=== PATIENT | female | born 1955 | race Caucasian/White ===

== ENCOUNTER 2017-04-24 13:27 | Outpatient (CLI) | payer BC ==
--- NOTE | 2017-04-28 12:14 | Mammography Report ---
DIGITAL SCREENING MAMMOGRAPHY: 04/24/2017 COMPARISON: 04/16/2016, 03/29/2015, 03/06/2014, 02/17/2013, and 11/10/2011. TECHNIQUE: Bilateral digital CC and MLO projections are performed. FINDINGS: There are scattered fibroglandular densities. A small posterior nodular density in the ri ght breast is stable. No new dominant mass, architectural distortion, skin thickening, suspicious mi crocalcifications, or interval change. IMPRESSION: NEGATIVE. BIRADS CATEGORY 1 - NEGATIVE. SUGGEST RETURN TO ROUTINE SCREENING IN ONE YEAR. STANDARD QUALIFYING STATEMENTS 1. This examination was reviewed with the aid of Computer-Aided Detection (CAD). 2. A negative or benign imaging report should not delay biopsy if clinically suspicious findings are present. Consider surgical consultation if warranted. More than 5% of cancers are not identified by i maging. 3. Dense breasts may obscure an underlying neoplasm. JOB #: [id number] EXT JOB #:[id number]
== END 2017-04-24 13:28 | disposition home or self-care (01) ==
LOC: DI.N 13:27
PROVIDERS: ATTEND Internal Medicine
DX: Z12.31 Encounter for screening mammogram for malignant neoplasm of breast (principal)
CPT/HCPCS: 77067

== ENCOUNTER 2018-05-04 13:22 | Outpatient (CLI) | payer MEDICARE, BC ==
--- NOTE | 2018-05-10 15:01 | Mammography Report ---
Reason: SCREENING MAMMO Procedure Date: 05/04/2018 Accession Number: [id number] / [id number] Procedure: MGN - Screening Mammo Dig Bilat CPT Code: FULL RESULT: EXAM: Screening Mammo Dig Bilat DATE: 05/04/2018 1:38 PM CLINICAL HISTORY: 63-year-old female with history of breast cancer in 1 cousin. TECHNIQUE: Bilateral CC and MLO views were obtained. COMPARISON: 04/24/2017, 04/16/2016, 04/06/2015, 02/26/2014. FINDINGS: The breasts demonstrate scattered fibroglandular densities bilaterally. No suspicious masses, clustered microcalcifications, or regions of architectural distortion are identified. IMPRESSION: Negative examination RECOMMENDATION: Routine annual screening unless otherwise clinically indicated. BIRADS CATEGORY 2: Benign findings STANDARD QUALIFYING STATEMENTS: 1. This examination was not reviewed with the aid of Computer-Aided Detection (CAD). 2. A negative or benign imaging report should not delay biopsy if clinically suspicious findings are present. Consider surgical consultation if warrented. More than 5% of cancers are not identified by imaging. 3. Dense breasts may obscure an underlying neoplasm. 4. This examination was reviewed without the aid of 3D breast imaging (tomosynthesis).
== END 2018-05-04 13:23 | disposition home or self-care (01) ==
LOC: DI.N 13:22
DX: Z12.31 Encounter for screening mammogram for malignant neoplasm of breast (principal); Z80.3 Family history of malignant neoplasm of breast
CPT/HCPCS: 77067

== ENCOUNTER 2018-07-16 12:42 | Outpatient (CLI) | payer MEDICARE, BC ==
--- NOTE | 2018-07-19 09:29 | DEXA Report ---
Reason: DISORDER OF BONE Procedure Date: 07/16/2018 Accession Number: [id number] / [id number] Procedure: DEX - Dexa Spine and/or Hip CPT Code: FULL RESULT: EXAM: Dexa Spine and/or Hip DATE: 07/16/2018 1:41 PM CLINICAL HISTORY: DISORDER OF BONE TECHNIQUE: Dual energy x-ray absorptiometry (DXA) was performed on a [employer] System. Regions measured are the AP Spine, femoral neck, and if needed forearm. COMPARISON: None. In accordance with the International Society for Clinical Densitometry (ISCD) guidelines, data from previous exams may be reanalyzed using current recommendations and techniques. This is done to allow a more accurate basis for comparison with the current study. FINDINGS: The data for the lumbar spine is as follows: BMD (g/cm/cm) T-SCORE Z-SCORE REGION L1 1.166 0.3 1.0 L2 1.280 0.7 1.4 L3 and L4 were excluded from analysis due to focal degenerative change with artifactually increased bone density. TOTAL 1.223 0.5 1.2 NOTE: All evaluable vertebrae are used for classification The data for the hip is as follows: BMD (g/cm/cm) T-SCORE Z-SCORE REGION Neck 1.050 0.1 1.0 TOTAL 0.948 -0.5 0.1 NOTE: The femoral neck or total proximal femur, whichever is lowest, is used for classification. IMPRESSION: THE WHO CLASSIFICATION BASED ON THE INTERNATIONAL REFERENCE STANDARD IS NORMAL. THE FRACTURE RISK IS NOT INCREASED. RECOMMENDATION: Patients with diagnosis of osteoporosis or osteopenia should have regular bone mineral density assessment. For those eligible for Medicare, routine testing is allowed once every 2 years. Testing frequency can be increased for patients who have rapidly progressing disease or for those who are receiving medical therapy to restore bone mass. COMMENT: World Health Organization (WHO) definitions for osteoporosis and osteopenia: NORMAL BMD: T-score at -1.0 or higher, fracture risk is low OSTEOPENIA BMD: T-score between -1.0 and -2.5, fracture risk is increased. OSTEOPOROSIS BMD: T-score at -2.5 or lower, fracture risk is high. National Osteoporosis Foundation recommends: 1. Obtain adequate dietary calcium (at least 1200 mg per day) and vitamin D (400-800 international units per day). 2. Participate, as appropriate, in regular weightbearing and muscle-strengthening exercise. 3. Avoid tobacco use and reduce alcohol and caffeine intake. 4. For more detailed information see the website at www.NOF.org.
== END 2018-07-16 12:43 | disposition home or self-care (01) ==
LOC: DI 12:42
PROVIDERS: ATTEND Internal Medicine
DX: M89.9 Disorder of bone, unspecified (principal)
CPT/HCPCS: 77080

== ENCOUNTER 2018-08-16 12:48 | Outpatient (CLI) | payer MEDICARE, BC | END 2018-08-16 12:49 | disposition home or self-care (01) | LOC: SC 12:48 | PROVIDERS: ATTEND Internal Medicine Pulmonary Disease | DX: R06.83 Snoring (principal); E66.9 Obesity, unspecified; Z68.37 Body mass index [BMI] 37.0-37.9, adult | CPT/HCPCS: 99203; G0463; 99212 ==

== ENCOUNTER 2018-09-28 20:24 | Outpatient (CLI) | payer MEDICARE, BC | END 2018-09-28 20:25 | disposition home or self-care (01) | LOC: SC 20:24 | PROVIDERS: ATTEND Internal Medicine Pulmonary Disease | DX: G47.33 Obstructive sleep apnea (adult) (pediatric) (principal); G47.61 Periodic limb movement disorder | CPT/HCPCS: 95810 ==

== ENCOUNTER 2018-11-02 11:03 | Outpatient (CLI) | payer MEDICARE, BC | END 2018-11-02 11:04 | disposition home or self-care (01) | LOC: SC 11:03 | PROVIDERS: ATTEND Nurse Practitioner Family | DX: G47.33 Obstructive sleep apnea (adult) (pediatric) (principal); G47.61 Periodic limb movement disorder | CPT/HCPCS: 99214; G0463; 99212 ==

== ENCOUNTER 2019-02-08 13:06 | Outpatient (CLI) | payer MEDICARE, BC | END 2019-02-08 13:07 | disposition home or self-care (01) | LOC: SC 13:06 | PROVIDERS: ATTEND Nurse Practitioner Family | DX: G47.33 Obstructive sleep apnea (adult) (pediatric) (principal) | CPT/HCPCS: 99214; G0463; 99212 ==

== ENCOUNTER 2019-05-05 13:17 | Outpatient (CLI) | payer MEDICARE, BC ==
--- NOTE | 2019-05-06 09:52 | Mammography Report ---
Reason: SCREENING MAMMO Procedure Date: 05/05/2019 Accession Number: [id number] / [id number] Procedure: MGN - Screening Mammo Dig Bilat CPT Code: FULL RESULT: EXAM: Screening Mammo Dig Bilat DATE: 05/05/2019 1:43 PM CLINICAL HISTORY: Screening encounter. TECHNIQUE: (B) - Bilateral CC and MLO views were obtained. COMPARISON: 05/04/2018 10/27/2014. PARENCHYMAL PATTERN: (A) - The breast(s) demonstrate(s) scattered fibroglandular densities. FINDINGS: There are no suspicious masses, calcifications, or areas of distortion. IMPRESSION: Negative examination. BI-RADS category 1. RECOMMENDATION: (ANNUAL) - Recommend routine annual screening mammography. BI-RADS CATEGORY: (1) - Negative. STANDARD QUALIFYING STATEMENTS: 1. This examination was not reviewed with the aid of Computer-Aided Detection (CAD). 2. A negative or benign imaging report should not preclude biopsy if clinically suspicious findings are present. 3. Dense breasts may obscure an underlying neoplasm. 4. This examination was reviewed without the aid of 3D breast imaging (tomosynthesis).
== END 2019-05-05 13:18 | disposition home or self-care (01) ==
LOC: DI.N 13:17
DX: Z12.31 Encounter for screening mammogram for malignant neoplasm of breast (principal)
CPT/HCPCS: 77067

== ENCOUNTER 2019-05-10 13:04 | Outpatient (CLI) | payer MEDICARE, BC ==
[2019-05-10 14:13] VITALS: BP 120/68
--- NOTE | 2019-05-10 14:13 | SLEEP CARE CONSULTATION ---
Information from patient questionnaire entered by Sonali Sheikh. I have reviewed and concur with the information entered by Sonali Sheikh. This document represents the service I personally performed and the decisions made by me, Kaylee Viera, RN, MSN, LEAD PROGRAMMER. History of Present Illness Previous diagnosis: Mild, Obstructive Sleep Apnea-Hypopnea Syndrome AHI: 9.8 Reason for CPAP/BiPAP follow up: three month (and pressure change) Equipment type: CPAP Equipment obtained from: [facility] Mask style: Nasal pillows Backup mask available: No (keep current mask when replaced as spare) Last cushion change: a few days ago Prior sleep studies: Yes CPAP Compliance Data - Data Reviewed with Patient Average duration of nightly device use: 7h 53m Compliance rate %: 100 Current pressure setting (cmH2O): 9 Average residual AHI: 1.3 Subjective Patient concerns: denies: aerophagia, mask discomfort, air blowing in eyes, mask leak noise, condensation in mask/hose, nasal congestion, dry mouth, nose, throat, epistaxis Observed to snore while using device: No Current pressure setting perceived as: comfortable On therapy, patient: reports: other (no change except reduction of blood pressure. ). denies: drowsiness while driving Initial [place] Sleepiness Scale score: 2 Current [place] Sleepiness Scale score: 6 Allergies and Home Medications Known drug allergies: Yes (niacin) Home medication list reviewed: Yes Allergy and home medication list: Medication Name (generic/name brand) Strength & Dosage Liothyronine Sodium ( Cytomel) 5mcg tab one daily on empty stomach Lisinopril 10mg tab one daily Synthroid 150mcg tab one daily Vitamin D 2000IU tab one daily Aspirin 81mg tab one daily selenium 1 tab 200 units? daily Allergy List Niacin Review of Systems Review of systems same as previous: Yes Physical Exam Blood Pressure: 120/68 Cuff size: long Heart Rate: 81 O2 Saturation: 97 Height: 5 ft 1.75 in Weight: 202 lb Body Mass Index: 37.2 BMI Classification: Obesity Class 2 Impression and Plan 1. Obstructive Sleep Apnea-Hypopnea Syndrome, mild, with good treatment compliance and good apnea control. On CPAP therapy, the patient has noted no change except lower blood pressure readings. She monitors blood pressure at home. She did not report sleepiness symptoms prior to CPAP therapy but came in due to symptoms noted by family while she slept. Since the weather is changing , I reviewed how to adjust humidity and heated hose on sample device and rationale for changing. She is aware of how often to get supplies but I gave her our simpler copy of supply replacement schedule. Patient's apnea severity and rationale for treatment to reduce apnea, improve sleep quality and reduce cardiovascular and cerebrovascular events was reviewed. I also reviewed the benefit of consistent device use of CPAP for hypertension. * Continue CPAP pressure at 9 cmH2O * Adjust humidity / heated hose as needed * Notify me if snoring with mask or feeling that the pressure is too much or too little * Attempt to lose weight * Return for follow up in 6 months , or sooner if concerns arise I spent 100% of this 20 minute visit face to face with the patient with greater than 50% of this was spent time counseling the patient and coordination of care.
== END 2019-05-10 13:05 | disposition home or self-care (01) ==
LOC: SC 13:04
PROVIDERS: ATTEND Nurse Practitioner Family
DX: G47.33 Obstructive sleep apnea (adult) (pediatric) (principal)
CPT/HCPCS: 99213; G0463; 99212

== ENCOUNTER 2019-06-20 12:04 | Day surgery (SDC) | payer MEDICARE, BC ==
[2019-06-20] MEDS ORDERED: LACTATED RINGERS 1,000 ML IV ONE (12:16)
[2019-06-20] MEDS ORDERED: MIDAZOLAM 2 MG/2 ML VIAL IVP ONE (13:21)
[2019-06-20] MEDS ORDERED: fentaNYL 250 MCG/5 ML VIAL IVP ONE (13:21)
[2019-06-20 14:32] VITALS: BP 108/49
== END 2019-06-20 12:05 | disposition home or self-care (01) ==
LOC: SDS 12:04
PROVIDERS: ATTEND Surgery
PROC: 0DBN8ZZ Excision of Sigmoid Colon, Via Natural or Artificial Opening Endoscopic (ICD-10-PCS; principal; 2019-06-20 13:30)
DX: Z12.11 Encounter for screening for malignant neoplasm of colon (principal); D12.5 Benign neoplasm of sigmoid colon; E66.9 Obesity, unspecified; I10 Essential (primary) hypertension; Z79.899 Other long term (current) drug therapy; Z68.37 Body mass index [BMI] 37.0-37.9, adult; Z80.0 Family history of malignant neoplasm of digestive organs
CPT/HCPCS: 45380; J7120

== ENCOUNTER 2019-11-24 15:46 | Outpatient (CLI) | payer MEDICARE, BC ==
--- NOTE | 2019-11-24 14:21 | SLEEP CARE CONSULTATION ---
Information from patient questionnaire entered by Sonali Sheikh. I have reviewed and concur with the information entered by Sonali Sheikh. This document represents the service I personally performed and the decisions made by me, Kaylee Viera, RN, MSN, DIRECTOR [employer]ETING. History of Present Illness Service Date and Time: 11/24/2019 1400 Previous diagnosis: Mild, Obstructive Sleep Apnea-Hypopnea Syndrome AHI: 9.8 Reason for follow up: six month Equipment type: CPAP Equipment obtained from: [facility] Mask style: Nasal pillows Backup mask available: Yes Last cushion change: a few days Prior sleep studies: Yes Type of Sleep Study: Polysomnography CPAP Compliance Data - Data Reviewed with Patient Average duration of nightly device use: 6h 41m Compliance rate %: 76 Current pressure setting (cmH2O): 9 Average residual AHI: 1.3 Average large leak: 1.5 liter / minute Subjective Missed days of use due to: reports: illness Patient concerns: denies: aerophagia, mask discomfort, air blowing in eyes, mask leak noise, condensation in mask/hose, nasal congestion, dry mouth, nose, throat, epistaxis, other Observed to snore while using device: No Current pressure setting perceived as: comfortable On therapy, patient: reports: sleeping better, awakening more refreshed, being more awake and alert during the day, more rested overall, other. denies: drowsiness while driving Initial [place] Sleepiness Scale score: 2 Current [place] Sleepiness Scale score: 3 Allergies and Home Medications Home medication list reviewed: No (no changes stated) Review of Systems Review of systems same as previous: No ( cold virus) Physical Exam Height: 5 ft 2 in Weight: 193 lb (home) Body Mass Index: 35.3 BMI Classification: Obese Impression and Plan 1. Obstructive Sleep Apnea-Hypopnea Syndrome, mild, with good treatment compliance and good apnea control. On CPAP therapy, the patient has better sleep quality and is more rested overall. Patient is pleased with benefit of treatment and plans on continuing CPAP use. She is obtaining her supplies as needed from her DME. Only missed days of use were due to a cold. Patient advised that sometimes, a higher humidity and / clearing her nose with saline nasal spray can assist breathing through nose when ill with a cold. Otherwise, apnea risk can be reduced by elevated the head of bed. I discussed how weight change can affect apnea severity and CPAP pressure requirements so patient advised to contact this office if any concerns with pressure. Patient's apnea severity and rationale for treatment to reduce apnea, improve sleep quality and reduce cardiovascular and cerebrovascular events was reviewed. * Continue CPAP pressure at 9 cmH2O * Notify me if snoring with mask or feeling that the pressure is too much or too little * Attempt to lose weight * Call this office if any problems using CPAP * Return for follow up in 1 year, or sooner if concerns arise Visit Type: Telehealth Phone (to minimize the risk of COVOD -19 exposure, the patient has agreed to a telehealth visit and to have her insurance billed.) Location of Provider: Home Patient agrees and consents to this telehealth visit type: Yes Time Spent with Patient (minutes): 9 Provider Statement: I spent 100% of the Telehealth Phone Call with the patient with greater than 50% spent counseling the patient and coordination of care.
== END 2019-11-24 15:47 | disposition home or self-care (01) ==
LOC: SC 15:46
PROVIDERS: ATTEND Nurse Practitioner Family
DX: G47.33 Obstructive sleep apnea (adult) (pediatric) (principal); E66.9 Obesity, unspecified; Z68.35 Body mass index [BMI] 35.0-35.9, adult

== ENCOUNTER 2020-08-02 11:47 | Outpatient (CLI) | payer MEDICARE, BC ==
--- NOTE | 2020-08-06 13:21 | Mammography Report ---
BILATERAL DIGITAL SCREENING MAMMOGRAM 3D/2D: 08/02/2020 CLINICAL: Routine screening. Comparison is made to exams dated: 05/05/2019 mammogram, 05/04/2018 mammogram, 04/24/2017 mammogram, 04/16/2016 mammogram, 03/29/2015 mammogram, and 03/06/2014 mammogram - [facility]. The t issue of both breasts is predominantly fatty. No significant masses, calcifications, or other findings are seen in either breast. There has been no significant interval change. IMPRESSION: NEGATIVE There is no mammographic evidence of malignancy. A 1 year screening mammogram is recommended. This exam was interpreted at Station ID: [id number]. NOTE: For mammograms, a report in lay terms will be sent to the patient. Approximately 15% of breast malignancies will not be visualized mammographically. In the management of a palpable breast mass, a negative mammogram must not discourage biopsy of a clinically suspicious lesion. Electronically Signed By: Jt Marshall acr/penrad:08/02/2020 12:28:12 ACR BI-RADS Category 1: Negative 3341F PARENCHYMAL PATTERN: (F) - The breast(s) demonstrate(s) diffuse fatty replacement. BI-RADS CATEGORY: (1) - 1 RECOMMENDATION: (ANNUAL) - Recommend routine annual screening mammography. [id number] 1 year screening LATERALITY: (B)
== END 2020-08-02 11:48 | disposition home or self-care (01) ==
LOC: DI.N 11:47
DX: Z12.31 Encounter for screening mammogram for malignant neoplasm of breast (principal)
CPT/HCPCS: 77067